=== PATIENT | male | born 1990 | race Caucasian/White ===

== ENCOUNTER 2021-11-06 15:36 | Inpatient (IN) ==
[2021-11-06] MEDS ORDERED: NS 0.9% 1000 ml BAG 1,000 ML IV ONE (15:40)
[2021-11-06 17:33] LABS: Acetaminophen < 15 mcg/mL; Alcohol, S < 13 mg/dL (<13); Lithium 0.53 mmol/L (0.6-1.2); Salicylate < 2.50 mg/dL (<30)
[2021-11-07] MEDS ORDERED: Al Hydrox/Mg Hydrox/Simet LIQ 30 ML UDC PO PRN (09:39)
[2021-11-07] MEDS: Lithium Carbonate ER 450mg TAB PO SCH (19:55)
[2021-11-08] MEDS: Lithium Carbonate ER 450mg TAB PO SCH ×2 (08:31→21:20)
[2021-11-08] MEDS ORDERED: Paliperidone SUSTENNA 234 MG/1.5 ML IM ONE (11:25)
[2021-11-09] MEDS: Lithium Carbonate ER 450mg TAB PO SCH ×2 (09:58→20:25)
[2021-11-10] MEDS: Lithium Carbonate ER 450mg TAB PO SCH ×2 (07:56→20:17)
[2021-11-10 08:03] LABS: Lithium 0.74 mmol/L (0.6-1.2)
[2021-11-11] MEDS: Lithium Carbonate ER 450mg TAB PO SCH (08:13)
[2021-11-11] MEDS ORDERED: Paliperidone SUSTENNA 156 MG/1 ML IM ONE (09:00)
== END 2021-11-11 11:20 | disposition home or self-care (01) | DRG 753 ==
LOC: ED 15:36 → BSU 11-07 12:16
PROVIDERS: ADMIT Psychiatry & Neurology Psychiatry; ATTEND Psychiatry & Neurology Psychiatry